=== PATIENT | male | born 1950 | race Caucasian/White ===

== ENCOUNTER 2018-05-29 15:20 | Emergency (ER) | payer MEDICARE, BC ==
[~2018-05-29] VITALS: Ht 177.8 cm; Wt 81.6 kg
[2018-05-29 15:37] LABS: BASOPHILS % (AUTO) 0 % (0-10); EOSINOPHILS # (AUTO) 0.1 10^3/uL (0.0-0.3); EOSINOPHILS % (AUTO) 1 % (0-10); HEMATOCRIT 33 % (40-54); HEMOGLOBIN 11.1 G/DL (13.3-17.7); LYMPHOCYTES # (AUTO) 1.9 X 10^3 (1.0-4.0); LYMPHOCYTES % (AUTO) 27 % (12-44); MEAN CORPUSCULAR HEMOGLOBIN 30 PG (25-34); MEAN CORPUSCULAR HGB CONC 33 G/DL (32-36); MEAN CORPUSCULAR VOLUME 89 FL (80-99); MEAN PLATELET VOLUME 12.3 FL (7.4-10.4); MONOCYTES # (AUTO) 0.5 X 10^3 (0.0-1.0); MONOCYTES % (AUTO) 7 % (0-12); NEUTROPHILS # (AUTO) 4.4 X 10^3 (1.8-7.8); NEUTROPHILS % (AUTO) 65 % (42-75); PLATELET COUNT 179 10^3/uL (130-400); RED CELL DISTRIBUTION WIDTH 12.8 % (10.0-14.5); WHITE BLOOD COUNT 6.8 10^3/uL (4.3-11.0)
[2018-05-29 15:43] LABS: INR 1.1 (0.8-1.4); PROTHROMBIN TIME PATIENT 13.9 SEC (12.2-14.7)
[2018-05-29 15:50] LABS: ALANINE AMINOTRANSFERASE 18 U/L (0-55); ALKALINE PHOSPHATASE 96 U/L (40-136); BILIRUBIN,TOTAL 0.6 MG/DL (0.1-1.0); BUN/CREATININE RATIO 19; CALCIUM 9.2 MG/DL (8.5-10.1); CARBON DIOXIDE 22 MMOL/L (21-32); CHLORIDE 108 MMOL/L (98-107); CREATININE SERUM 1.13 MG/DL (0.60-1.30); GFR ESTIMATED > 60; GLUCOSE 133 MG/DL (70-105); SODIUM 141 MMOL/L (135-145); TOTAL PROTEIN 6.6 GM/DL (6.4-8.2)
[2018-05-29] MEDS ORDERED: NS IV 1000 ML 1,000 ML IV SCH (15:51)
--- NOTE | 2018-05-29 16:07 | Diagnostic Imaging Report ---
INDICATION: Nosebleed. TECHNIQUE: Noncontrast brain CT is performed. FINDINGS: There are no extra-axial fluid collections. No intracranial hemorrhage. No intracranial mass or mass effect. No midline shift. The ventricles are normal in size and position. There are no focal parenchymal abnormalities in the brain. Calvarial windows show no bony abnormality. Orbital contents appear unremarkable. There are fluid levels with hyperdense fluid in the maxillary sinuses on both sides, left greater than right, most likely representing blood products given the patient's history. There is also a small amount of blood or fluid in the sphenoid sinuses. IMPRESSION: No acute intracranial abnormality. There are hyperdense fluid levels in the maxillary sinuses and sphenoid sinuses, most likely represent blood in the sinuses given the patient's history. Dictated by: Dictated on workstation # [id number]
--- NOTE | 2018-05-29 16:20 | ED EENT ---
History of Present Illness General Chief Complaint: Nasal Problems Stated Complaint: NOSE BLEED Nursing Triage Note: TO ROOM PER EMS FROM DR HAYNES OFFICE. IVETTE BERNABE AT DR WATTS OFFICE REPORTS THAT PATIENT WAS SEEN IN THEIR OFFICE FOR NOSE BLEED PACKING PLACED IN R NARE. DR HAYNES NOT AVAILABLE. IVETTE CONCERN THAT HE MAY NEED TO GO TO SURG. ALSO REPORTS THAT PATIENT WAS SITTING IN CHAIR AND PASSED OUT AND HELPED PATIENT TO GROUND STAFF AT DR HAYNES'S OFFICE CONCERN HE MAY OF HAD A SEIZURE. ON ADMIT ALERT AND REPORTS HAD A NOSEBLEED THIS WEEKEND BUT IT STOPPED WHEN HE PACKED IT History of Present Illness Date Seen by Provider: May 29, 2018 Time Seen by Provider: 15:30 Initial Comments 68 year old male with left nare epistaxis. He was seen by Ivette Frye APRN and referred her via EMS for bleeding from left nare and vasovagal or seizure activity (Dr. Haynes is not available for the next 6 days). Patient denies history of seizure disorder. He has occ epistaxis but as child had significant hx and was treated at [facility] for this. He denies ever being dx'd with bleeding disorder. He is on no medications and does not see a PCP regularly. He takes Motrin 600-800 mg a few times a week. The left nare bleeding began at 11:00 today, it stopped and then began again about 2:00 when the packing was removed. Aleja was packed by Ivette Frye and he was brought here. He did have bowel and bladder incontinence at their office. He reports some epistaxis, mild over the last few days and feeling that he is swallowing blood clots, he noted dark stools today. He had a colonoscopy approx 8-10 years ago that was normal. Timing/Duration: this morning Severity: moderate Location: nose Prearrival Treatment: squeezing nostrils, nasal packing Associated Symptoms: denies symptoms Allergies and Home Medications Allergies Coded Allergies: No Known Drug Allergies (Unverified , 05/29/18) Home Medications Cephalexin 500 Mg Capsule, 500 MG PO Q8H Prescribed by: MINGO OWEN on 05/29/18 3623 Patient Home Medication List Home Medication List Reviewed: Yes Review of Systems Review of Systems Constitutional: no symptoms reported, see HPI Nose: see HPI, clots, epistaxis, bloody discharge All Other Systems Reviewed Negative Unless Noted: Yes Past Hdcwykm-Fduzkv-Xbpwtw Hx Past Med/Social Hx: Reviewed Nursing Past Med/Soc Hx Patient Social History Alcohol Use: Denies Use Recreational Drug Use: No Smoking Status: Never a Smoker Recent Foreign Travel: No Contact w/Someone Who Travel: No Recent Infectious Disease Expo: No Past Medical History Surgeries: Yes (BURN ) Cardiac: No Neurological: No Genitourinary: No Gastrointestinal: No Musculoskeletal: No Physical Exam Vital Signs Vital Signs - First Documented 05/29/18 05/29/18 15:20 17:58 Temp 98.0 Pulse 79 Resp 18 B/P (MAP) 144/104 (117) Pulse Ox 96 O2 Delivery Room Air Height, Weight, BMI Height: 5'10.00" Weight: 180lbs. oz. 81.646714mx; BMI Method:Stated General Appearance: WD/WN Eyes: bilateral eye normal inspection, bilateral eye PERRL, bilateral eye EOMI Ears: bilateral ear auricle normal, bilateral ear canal normal, bilateral ear other (bilat hemotympanum) Nose: No active bleeding; dried blood; No sinus tenderness; other (Mericel packed in left nare, no active bleeding. ) Mouth/Throat: normal mouth inspection, pharynx normal (trace bright red blood noted in posterior pharynx, no active bleeding) Neck: non-tender, full range of motion, supple, normal inspection Cardiovascular: normal peripheral pulses, regular rate, rhythm Respiratory: chest non-tender, lungs clear, normal breath sounds Gastrointestinal: normal bowel sounds, non tender, soft Neurologic/Psychiatric: no motor/sensory deficits, alert, normal mood/affect, oriented x 3 Skin: normal color, warm/dry Progress/Results/Core Measures Results/Orders Lab Results Laboratory Tests Test 05/29/18 15:22 Range/Units White Blood Count 6.8 4.3-11.0 10^3/uL Red Blood Count 3.76 L 4.35-5.85 10^6/uL Hemoglobin 11.1 L 13.3-17.7 G/DL Hematocrit 33 L 40-54 % Mean Corpuscular Volume 89 80-99 FL Mean Corpuscular Hemoglobin 30 25-34 PG Mean Corpuscular Hemoglobin Concent 33 32-36 G/DL Red Cell Distribution Width 12.8 10.0-14.5 % Platelet Count 179 130-400 10^3/uL Mean Platelet Volume 12.3 H 7.4-10.4 FL Neutrophils (%) (Auto) 65 42-75 % Lymphocytes (%) (Auto) 27 12-44 % Monocytes (%) (Auto) 7 0-12 % Eosinophils (%) (Auto) 1 0-10 % Basophils (%) (Auto) 0 0-10 % Neutrophils # (Auto) 4.4 1.8-7.8 X 10^3 Lymphocytes # (Auto) 1.9 1.0-4.0 X 10^3 Monocytes # (Auto) 0.5 0.0-1.0 X 10^3 Eosinophils # (Auto) 0.1 0.0-0.3 10^3/uL Basophils # (Auto) 0.0 0.0-0.1 10^3/uL Prothrombin Time 13.9 12.2-14.7 SEC INR Comment 1.1 0.8-1.4 Activated Partial Thromboplast Time 24 24-35 SEC Sodium Level 141 135-145 MMOL/L Potassium Level 4.0 3.6-5.0 MMOL/L Chloride Level 108 H 98-107 MMOL/L Carbon Dioxide Level 22 21-32 MMOL/L Anion Gap 11 5-14 MMOL/L Blood Urea Nitrogen 22 H 7-18 MG/DL Creatinine 1.13 0.60-1.30 MG/DL Estimat Glomerular Filtration Rate > 60 BUN/Creatinine Ratio 19 Glucose Level 133 H 70-105 MG/DL Calcium Level 9.2 8.5-10.1 MG/DL Corrected Calcium 9.2 8.5-10.1 MG/DL Total Bilirubin 0.6 0.1-1.0 MG/DL Aspartate Amino Transf (AST/SGOT) 23 5-34 U/L Alanine Aminotransferase (ALT/SGPT) 18 0-55 U/L Alkaline Phosphatase 96 40-136 U/L Total Protein 6.6 6.4-8.2 GM/DL Albumin 4.0 3.2-4.5 GM/DL My Orders Orders - MINGO OWEN Red Cells Leukocytes Reduced (05/29/18 15:30) Ct Head Wo (05/29/18 15:30) Cbc With Automated Diff (05/29/18 15:30) Comprehensive Metabolic Panel (05/29/18 15:30) Protime With Inr (05/29/18 15:30) Partial Thromboplastin Time (05/29/18 15:30) Type And Screen (05/29/18 15:30) Saline Lock/Iv-Start (05/29/18 15:51) Ns Iv 1000 Ml (Sodium Chloride 0.9%) (05/29/18 15:51) Fecal Occult Bedside (05/29/18 15:55) Vital Signs/I&O 05/29/18 05/29/18 15:20 17:58 Temp 98.0 Pulse 79 72 Resp 18 18 B/P (MAP) 144/104 (117) 145/97 (113) Pulse Ox 96 97 O2 Delivery Room Air Blood Pressure Mean: 117 Progress Progress Note : Time: 15:30 Progress Note Patient seen and evaluated, will obtain labs, type and cross match 2 units of PRBCs, CT head, IV NS 1 liter. 1600 Hgb 11.1, remainder of labs WNL. [address] shows blood in max and sphenoid sinuses, no other abnormalities noted. No bleeding from Nare and Posterior Pharynx free of any blood. [address] Stephen ENT at [place], he recommended leaving packing in left nare for 3-4 days, then removal by ENT. Since patient is hemodynamically stable, B/P is 137/91 and there is no bleeding, he did not recommend transfer to [place] at this time. Treat with Keflex for 7 days. If bleeding returns, he recommended packing the right nare, applying ice to nice and sending the patient to [place]. He was comfortable with the patient returning home or if they desired, admit for observation here and labs in morning. 1700 Spoke to Patient and his family. They are comfortable returning home, will monitor nare for bleeding. 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 Leave packing in at all times. Notified Ivette Frye APRN, she is comfortable seeing patient on Monday for removal. If patient desires to have it removed Mon, she prefers he see an ENT. Discharge instructions and return precautions reviewed, all questions answered. Diagnostic Imaging Diagonstic Imaging: CT Plain Films/CT/US/NM/MRI: head Comments NAME: JESSICA FULLER [facility] REC#: [id number] PT STATUS: REG ER : 1950 PHYSICIAN: MINGO OWEN ADMIT DATE: 05/29/18/ER Draft Date of Exam:05/29/18 CT HEAD WO INDICATION: Nosebleed. TECHNIQUE: Noncontrast brain CT is performed. FINDINGS: There are no extra-axial fluid collections. No intracranial hemorrhage. No intracranial mass or mass effect. No midline shift. The ventricles are normal in size and position. There are no focal parenchymal abnormalities in the brain. Calvarial windows show no bony abnormality. Orbital contents appear unremarkable. There are fluid levels with hyperdense fluid in the maxillary sinuses on both sides, left greater than right, most likely representing blood products given the patient's history. There is also a small amount of blood or fluid in the sphenoid sinuses. IMPRESSION: No acute intracranial abnormality. There are hyperdense fluid levels in the maxillary sinuses and sphenoid sinuses, most likely represent blood in the sinuses given the patient's history. Dictated on workstation # [id number] Dict: 05/29/18 1559 Trans: 05/29/18 1607 [id number] Interpreted by: ROSETTE COLUNGA MD Electronically signed by: Reviewed: Reviewed by Me Departure Impression Primary Impression: Epistaxis Disposition: HOME, SELF-CARE Condition: Improved Departure-Patient Inst. Decision time for Depature: 17:40 Patient Instructions: Nosebleeds (DC) Add. Discharge Instructions: Leave packing in at all times, do not remove for any reason. If bleeding resumes from the left near, put packing in the right side, apply ice to the nose and return to Emergency Department. Leave packing in for 3-4 days, you may see Dr. Stephen at [place] [facility] [phone] on Monday, call for appt. Otherwise, leave packing in place and call for appt with Ivette/Dr. Haynes call for appt. Do not take any aspirin, Motrin, or other NSAIDs. Take your Keflex as prescribed. You may take Tylenol 650 mg every 4-6 hours as needed Return to emergency department for syncopal episode, increased nasal bleeding, or new concerns. No heavy lifting or farm work. Rest and take it easy. All discharge instructions reviewed with patient and/or family. Voiced understanding. Scripts Cephalexin (Keflex) 500 Mg Capsule 500 MG PO Q8H, #21 CAP 0 Refills Prov: MINGO OWEN 05/29/18 Copy Copies To 1: JESSICA HAYNES MD, AMY ARNP May 29, 2018 16:20
--- NOTE | 2018-05-29 16:28 | NUR ---
FAMILY MEMBER WHO IS SISTER IS UPSET BECAUSE WE DID NOT SEND HIM TO [facility] ON ARRIVAL TO ED. EXPLAINED TO PATIENT AND SISTER THAT WE HAVE TO DO LAB AND CT IS WHAT THE [facility] WILL WANT. SISTER INSISTENT THAT HE NEEDS TO GO NOW BECAUSE HE HAS ARTERY THAT IS BLEEDING. EXPLAINED TO HER THAT NO BLOOD NOTED COMING AROUND PACKING AND NONE SEEN IN BACK OF THROAT WHEN EXAM DONE BY RN MIDWIFE. EXPLAINED THAT HE HAD TO BE ACCEPTED BY [facility] DR COULD JUST NOT SENT HIM.
--- NOTE | 2018-05-29 16:52 | NUR ---
MINGO FOSS CALLING [facility] TO TALK WITH ENT
--- NOTE | 2018-05-29 17:06 | NUR ---
INFORMED PATIENT AND FAMILY THAT WATING AIRBRUSH ARTIST BACK FROM [facility] SISTER NOT HAPPY THINKS WE SHOULD PUT HIM IN AMBULANCE AND SEND. EXPLAINED HER WHY WE COULD NOT JUST SENT HIM.
--- NOTE | 2018-05-29 17:31 | NUR ---
MINGO OWEN [employer]ACH TO ROOM TO DISCUSS WHAT WAS TOLD TO HER BY ENT AT [facility]
[2018-05-29] MEDS ORDERED: CEPH-507 PO ×2 (17:42→18:01)
--- NOTE | 2018-05-29 17:46 | NUR ---
PATIENT AND FAMILY OK WITH GOING HOME. CRACKERS PEANUT BUTTER AND WATER GIVEN.
[2018-05-29 17:58] VITALS: BP 145/97
== END 2018-05-29 17:53 | disposition home or self-care (01) ==
LOC: ER 15:21
DX: R04.0 Epistaxis (principal)
CPT/HCPCS: 36415; 70450; 80053; 85025; 85610; 85730; 86850; 86900; 86901; 86920

== ENCOUNTER → 2018-10-02 | Outpatient (CLI) | payer MEDICARE, BC ==
[~2018-10-02] MED LIST: CEPH-507 PO
[2018-10-02 12:17] LABS: BASOPHILS % (AUTO) 0 % (0-10); EOSINOPHILS # (AUTO) 0.1 10^3/uL (0.0-0.3); EOSINOPHILS % (AUTO) 2 % (0-10); HEMATOCRIT 38 % (40-54); HEMOGLOBIN 12.4 G/DL (13.3-17.7); LYMPHOCYTES # (AUTO) 1.4 X 10^3 (1.0-4.0); LYMPHOCYTES % (AUTO) 30 % (12-44); MEAN CORPUSCULAR HEMOGLOBIN 25 PG (25-34); MEAN CORPUSCULAR HGB CONC 32 G/DL (32-36); MEAN CORPUSCULAR VOLUME 79 FL (80-99); MONOCYTES # (AUTO) 0.5 X 10^3 (0.0-1.0); MONOCYTES % (AUTO) 11 % (0-12); NEUTROPHILS # (AUTO) 2.6 X 10^3 (1.8-7.8); NEUTROPHILS % (AUTO) 57 % (42-75); PLATELET COUNT 204 10^3/uL (130-400); RED CELL DISTRIBUTION WIDTH 15.9 % (10.0-14.5); WHITE BLOOD COUNT 4.6 10^3/uL (4.3-11.0)
== END ==
LOC: LAB FS 11:42
PROVIDERS: ATTEND Family Medicine
DX: D69.6 Thrombocytopenia, unspecified (principal)
CPT/HCPCS: 36415; 85025

== ENCOUNTER → 2020-05-06 | Outpatient (CLI) | payer MEDICARE, BC ==
[2020-05-06 10:30] LABS: CARBON DIOXIDE 28 MMOL/L (21-32); CHLORIDE 104 MMOL/L (98-107); POTASSIUM 4.4 MMOL/L (3.6-5.0); SODIUM 141 MMOL/L (135-145)
[2020-05-06 10:31] LABS: ALANINE AMINOTRANSFERASE 26 U/L (0-55); ALBUMIN 4.5 GM/DL (3.2-4.5); ALKALINE PHOSPHATASE 122 U/L (40-136); BILIRUBIN,TOTAL 0.5 MG/DL (0.1-1.0); BUN/CREATININE RATIO 15; CALCIUM 9.4 MG/DL (8.5-10.1); CREATININE SERUM 1.09 MG/DL (0.60-1.30); GFR ESTIMATED > 60; GLUCOSE 117 MG/DL (70-105); TOTAL PROTEIN 7.4 GM/DL (6.4-8.2)
[2020-05-06 15:19] LABS: CHOLESTEROL 223 MG/DL (< 200); HDL CHOLESTEROL 35 MG/DL (40-60); TRIGLYCERIDES 215 MG/DL (<150); VLDL CHOLESTEROL 43 MG/DL (5-40)
== END ==
LOC: LAB FS 08:43
PROVIDERS: ATTEND Family Medicine
DX: Z12.11 Encounter for screening for malignant neoplasm of colon (principal); E78.5 Hyperlipidemia, unspecified; R07.9 Chest pain, unspecified; W57.XXXS Bitten or stung by nonvenomous insect and other nonvenomous arthropods, sequela
CPT/HCPCS: 36415; 80053; 80061; 86618; 86666; 86668; 86757

== ENCOUNTER → 2021-04-15 | Outpatient (CLI) | payer MEDICARE, BC | LOC: ORTHO 15:49 | PROVIDERS: ATTEND Orthopaedic Surgery | DX: M67.471 Ganglion, right ankle and foot (principal) ==

== ENCOUNTER 2023-01-11 16:32 | Emergency (ER) | payer MEDICARE, BC ==
[~2023-01-11] VITALS: Ht 177 cm; Wt 70.0 kg
[2023-01-11] MEDS ORDERED: LIDOCAINE 1% INJ 20 ML VIAL INJ STA (16:35)
[2023-01-11 16:42] VITALS: BP 140/84
[2023-01-11] MEDS ORDERED: Tetanus/Diphtheria/Pertussis (Acell) ADULT Vaccine 0.5 ML IM ONE (16:45)
[2023-01-11] MEDS ORDERED: CEPH500C PO (16:49)
--- NOTE | 2023-01-11 16:49 | ED Upper Extremity ---
General Stated Complaint: L PINKY LAC Source: patient History of Present Illness Date Seen by Provider: Jan 11, 2023 Time Seen by Provider: 16:34 Initial Comments 72-year-old male presenting with complaints of laceration and crush injury to his left pinky finger. He has normal range of motion and intact sensation. He does have pain from the injury. He immediately applied pressure and came to the emergency department. He believes his last tetanus was more than 5 years ago. He denies other injuries. He denies allergies to medications. Onset: just prior to arrival Severity: moderate Pain/Injury Location: left 5th finger Method of Injury: direct blow, incised Modifying Factors: Worse With Movement Allergies and Home Medications Allergies Coded Allergies: No Known Drug Allergies (Unverified , 05/29/18) Patient Home Medication List Home Medication List Reviewed: Yes Cephalexin (Keflex) 500 Mg Capsule, 500 MG PO Q8H Prescribed by: MINGO OWEN on 05/29/18 1801 Cephalexin (Cephalexin) 500 Mg Capsule, 500 MG PO TID Prescribed by: MAIK WRAY on 01/11/23 1649 Review of Systems Constitutional: No chills, No fever EENTM: no symptoms reported Respiratory: no symptoms reported Cardiovascular: no symptoms reported Gastrointestinal: no symptoms reported Genitourinary: no symptoms reported Musculoskeletal: see HPI Skin: see HPI Psychiatric/Neurological: Denies Numbness, Denies Paresthesia Past Dvtrewz-Twnqgm-Mljmut Hx Past Medical History Surgeries: Yes (BURN ) Cardiac: No Neurological: No Genitourinary: No Gastrointestinal: No Musculoskeletal: No Physical Exam Vital Signs Vital Signs - First Documented 01/11/23 16:42 Pulse 78 Resp 18 B/P (MAP) 140/84 (102) Pulse Ox 94 O2 Delivery Room Air Capillary Refill : Height, Weight, BMI Height: 5'10.00" Weight: 180lbs. oz. 81.426875lp; BMI Method:Stated General Appearance: WD/WN, no apparent distress Cardiovascular: normal peripheral pulses Hand: laceration (Complex laceration to the proximal left pinky finger. Movement and sensation is intact.), soft tissue tenderness Neurologic/Tendon: normal sensation, normal motor functions, normal tendon functions Neurologic/Psychiatric: no motor/sensory deficits, alert, oriented x 3 Skin: normal color, warm/dry Procedures/Interventions Wound Location: Upper Extremities (Left pinky finger) Wound Length (cm): 5.2 Wound's Depth, Shape: irregular, stellate, contused tissue, sub Q Wound Explored: contaminated Irrigated w/ Saline (ccs): 250 Betadine Prep?: Yes Anesthesia: 1% Lidocaine Volume Anesthetic (ccs): 5 Suture: Ethlion Suture Size: 4-0 Number of Sutures: 16 Layer Closure?: 1 Sterile Dressing Applied?: Yes Progress After obtaining verbal consent from the patient the wound was anesthetized with 1% plain lidocaine. A total of 12 mL were infiltrated for a ring block and direct anesthetic effect. The wound was then irrigated with 250 mL of sterile saline and Betadine solution. No foreign bodies were seen. I did not appreciate any tendon injury or bone exposure. The x-rays did not show any acute fracture foreign body in the pinky finger he did have a residual foreign body at the MCP joint on the index finger. This was from a old injury and not related to today. The wound edges were loosely approximated using 4-0 Ethilon. A total of 16 simple interrupted stitches were placed to loosely approximate the wound edges. Patient tolerated procedure well without any immediate complication. Started on cephalexin for antibiotic to try and help prevent infe ction in addition to the flushing with the iodine solution. Counseled on elevation and ice to help with pain and swelling. Keep the wound clean and dry for the first 24 hours then may remove the dressing and wash with soap and water but do not soak it. Use antibiotic ointment and Telfa to prevent the wound sticking to the bandage. A splint was supplied to use after the initial bulky dressing was on for the first 24 hours. The splint would help limit movement of the left pinky finger to help stabilize the stitches and allow the area to heal. Counseled on follow-up and return precautions especially regarding infection. Advised to have the stitches out after 2 weeks. Be seen sooner if having more concerns. Progress/Results/Core Measures Results/Orders My Orders Orders - MAIK WRAY MD Lidocaine 1% Inj 20 Ml (Xylocaine 1% Inj (01/11/23 16:35) Dipht/Pertuss(Acell)/Tet Adult (Dipht/Pe (01/11/23 16:45) Finger(S) (01/11/23 16:40) Cephalexin Capsule (Cephalexin Capsule) (01/11/23 18:08) Wound Dressing-Ed (01/11/23 18:08) Orthopedic Equiment (01/11/23 18:08) Medications Given in ED Current Medications Medications Dose Ordered Sig/Michael Route Start Time Stop Time Status Last Admin Dose Admin Diphtheria/ Tetanus/Acell Pertussis 0.5 ml ONCE ONCE IM 01/11/23 16:45 01/11/23 16:46 DC 01/11/23 18:17 0.5 ML Vital Signs/I&O 01/11/23 16:42 Pulse 78 Resp 18 B/P (MAP) 140/84 (102) Pulse Ox 94 O2 Delivery Room Air Progress Progress Note : Progress Note Obtain x-rays of the pinky finger to evaluate for acute bony injury or foreign body. Update his tetanus booster. Verbally consented for repair of the laceration. We will perform a digital block with lidocaine and then irrigate and clean the wound with Betadine and sterile water. Approximate the wound edges as best I can with the irregular edges complex laceration. Plan on having stitches in for at least 14 days. Follow-up with primary care for continued concerns. See primary care or return here for removal of stitches after 14 days Diagnostic Imaging Diagonstic Imaging: Xray Plain Films/CT/US/NM/MRI: hand (Left pinky finger) Comments [facility]. [place], [place] NAME: JESSICA FULLER [facility] REC#: [id number] PT STATUS: REG ER : 1950 PHYSICIAN: MAIK WRAY MD ADMIT DATE: 01/11/23/ER FS Signed Date of Exam:01/11/23 FINGER(S) INDICATION: Crush injury to the left fifth finger. COMPARISON: No comparison is available. FINDINGS: There is evidence of a soft tissue injury of the fifth finger. There are however no findings of cortical disruption or an acute fracture. There is no joint dislocation. There are some background underlying arthritic changes throughout the interphalangeal joints. The remainder of the left hand demonstrates no acute process. There are severe arthritic changes at the base of the thumb. Hand alignment is normal. IMPRESSION: 1. Soft tissue injury to the fifth finger without identified osseous injury or fracture. There is no foreign body. 2. Background features of arthritis throughout the hand and wrist. Dictated by: Dictated on workstation # [id number] Dict: 01/11/23 1656 Trans: 01/11/231709 AS6 [id number] Interpreted by: ROSALIA BRITTON MD Electronically signed by: ROSALIA BRITTON MD 01/11/231709 Departure Impression Primary Impression: Laceration of little finger without foreign body without damage to nail Qualified Codes: S61.217A - Laceration without foreign body of left little finger without damage to nail, initial encounter Additional Impression: Crushing injury of left little finger, initial encounter Disposition: HOME, SELF-CARE Condition: Stable Departure-Patient Inst. Decision time for Depature: 18:11 Referrals: INDIO PEPPER MD (PCP/Family) Primary Care Physician Patient Instructions: Laceration Repair With Stitches ED Add. Discharge Instructions: Keep wound clean and dry for the first 24 hours. After that you may remove the dressing and wash with soap and water but do not soak the wound. After the first 24 hours keep the wound covered when it might get dirty or if it is rubbing against clothes or might get caught on something. Use the splint to help limit movement of the finger. Take antibiotic to help with preventing infection. Check with clinic for continued concerns. Return to ER or see clinic for removal of stitches after 14 days. Be seen sooner if having concerns for infection or p roblems with the wound. Scripts Hydrocodone/Acetaminophen (Hydrocodone-Acetamin 5-325 mg) 5 Mg-325 Mg Tablet 1 TAB PO Q4H PRN for PAIN SEVERE for 5 Days, #30 TAB 0 Refills Prov: MAIK WRAY MD 01/11/23 Cephalexin (Cephalexin) 500 Mg Capsule 500 MG PO TID for laceration for 7 Days, #21 CAP 0 Refills Prov: MAIK WRAY MD 01/11/23 MAIK WRAY MD Jan 11, 2023 16:49
--- NOTE | 2023-01-11 17:02 | Diagnostic Imaging Report ---
INDICATION: Crush injury to the left fifth finger. COMPARISON: No comparison is available. FINDINGS: There is evidence of a soft tissue injury of the fifth finger. There are however no findings of cortical disruption or an acute fracture. There is no joint dislocation. There are some background underlying arthritic changes throughout the interphalangeal joints. The remainder of the left hand demonstrates no acute process. There are severe arthritic changes at the base of the thumb. Hand alignment is normal. IMPRESSION: 1. Soft tissue injury to the fifth finger without identified osseous injury or fracture. There is no foreign body. 2. Background features of arthritis throughout the hand and wrist. Dictated by: Dictated on workstation # [id number]
[2023-01-11] MEDS ORDERED: CEPHALEXIN 250 MG CAPSULE PO STA (18:08)
[2023-01-11] MEDS ORDERED: ACHD5005 PO (20:28)
== END 2023-01-11 18:25 | disposition home or self-care (01) ==
LOC: EDUNIT# 16:32 → ER FS 16:33
DX: S61.217A Laceration without foreign body of left little finger without damage to nail, initial encounter (principal); Z23 Encounter for immunization; W23.0XXA Caught, crushed, jammed, or pinched between moving objects, initial encounter
CPT/HCPCS: 73140; 90715

== ENCOUNTER 2023-01-27 10:44 | Emergency (ER) | payer MEDICARE, BC ==
[~2023-01-27 10:44] MED LIST changes: +ACHD5005 PO; +CEPH500C PO
[2023-01-27 11:16] VITALS: BP 130/93
== END 2023-01-27 11:12 | disposition home or self-care (01) ==
LOC: EDUNIT# 10:44 → ER FS 10:45
DX: Z48.02 Encounter for removal of sutures (principal)